=== PATIENT | female | born 1970 | race Caucasian/White ===

== ENCOUNTER 2016-04-27 02:15 | Emergency (ER) | payer OTHER | END 2016-04-27 03:16 | disposition home or self-care (01) | LOC: CED 02:15 | DX: Z49.01 Encounter for fitting and adjustment of extracorporeal dialysis catheter (principal); F17.210 Nicotine dependence, cigarettes, uncomplicated; Z98.51 Tubal ligation status | CPT/HCPCS: 99283 ==